=== PATIENT | female | born 1950 | race Hispanic/Latino ===

== ENCOUNTER 2018-03-30 11:38 | Outpatient (CLI) | payer SELFPAY ==
--- NOTE | 2018-03-30 13:01 | RAD ---
LEFT KNEE 2 VIEWS: HISTORY: Chronic knee pain. FINDINGS: There are severe arthritic changes of the knee. There is marked medial compartment narrowing with pr ominent degenerative change of the lateral and patellofemoral compartments. A small joint effusion i s seen. IMPRESSION: Severe osteoarthritis changes of the knee. POS: [facility]
--- NOTE | 2018-03-30 13:01 | RAD ---
RIGHT KNEE 2 VIEWS: Date: 03/30/18 HISTORY: Chronic knee pain. FINDINGS: There are mild arthritic changes of the knee. There is mild to moderate medial compartment narrowing. Minimal patellofemoral and lateral compartment degenerative change. IMPRESSION: Mild to moderate arthritic changes of the right knee. POS: [facility]
== END 2018-03-30 11:39 | disposition home or self-care (01) ==
LOC: MADRAD 11:38
PROVIDERS: ATTEND Family Medicine
DX: M17.0 Bilateral primary osteoarthritis of knee (principal)

== ENCOUNTER 2020-07-22 22:59 | Emergency (ER) | payer SELFPAY ==
[2020-07-22 23:31] LABS: Bilirubin Negative (Negative); Blood, Urine Moderate (Negative); Clarity Clear (Clear); Glucose, Urine (Dipstick) Negative (Negative); Ketone, Urine Negative (Negative); Leukocyte Negative (Negative); Nitrite Negative (Negative); Protein, Urine (Dipstick) Negative (Neg-Trace); Specific Gravity, Urine 1.015 (1.005-1.030); Urobilinogen 0.2 mg/dL (Less than 2)
[2020-07-22 23:36] LABS: Bacteria/HPF Rare-Few HPF (None Seen); Squamous Epithelial 0-3 HPF (0-3); WBC/HPF 0-3 HPF (0-3)
[2020-07-22] MEDS ORDERED: Mag-Al Plus 1200 MG/1200 MG/120 MG/30 ML UDCUP ONE (23:57)
[2020-07-22] MEDS ORDERED: Ondansetron PF 4 MG/2 ML Vial ONE (23:57)
[2020-07-22] MEDS ORDERED: Lidocaine Viscous Sol 2% 15 ml UD Cup ONE (23:57)
[2020-07-22 23:59] LABS: #Eosinphils 0.1 thou/uL (0.0-0.7); #Lymphocytes 1.2 thou/uL (1.20-3.40); #Monocytes 0.7 thou/uL (0.11-0.59); %Basophils 0.7 % (0.0-1.0); %Lymphocytes 24.4 % (21.0-51.0); %Neutrophils 60.9 % (42.0-75.0); Hemoglobin 10.6 g/dL (12.0-16.0); Mean Corpuscular HGB CONC 30.9 g/dL (32.0-36.0); Mean Corpuscular Hemoglobin 26.8 pg (27.0-31.0); Platelet Count 210 thou/uL (130-400); RBC Distribution Width 13.1 % (11.5-14.5); Red Blood Cell (RBC) Count 3.94 mill/uL (4.20-5.40)
--- NOTE | 2020-07-23 00:03 | RAD ---
RADIOGRAPH CHEST 1 VIEW: DATE: 07/22/2020 TIME: 11:54 PM HISTORY: 69-year-old female with chest pain COMPARISON: 12/11/2002 FINDINGS: Mild to moderate infiltrate in right upper lobe was present previously. It appears slightly worse. Th is could be chronic or recurrent acute. Mild streaky densities at right mid and lower lung zones medially, probably representing pulmonary sc arring. Architectural distortion at left perihilar central upper lobe, new or worse than 2003. Nonspecific sc attered small nodular interstitial densities at left lower lung zone, chronic versus acute. No large consolidation, cardiomegaly, or pneumothorax.. IMPRESSION: Multiple bilateral pulmonary densities. At least some are probably chronic, scar. Difficult to determine whether there is any acute infiltrate, because the comparison study is so old.
[2020-07-23 00:20] LABS: ALT (SGPT) 14 U/L (8-55); AST (SGOT) 20 U/L (5-34); Albumin 4.1 g/dL (3.4-4.8); Alkaline Phosphatase 100 U/L (40-110); Anion Gap 16 mmol/L (10-20); BUN (Urea Nitrogen) 31 mg/dL (9.8-20.1); Bilirubin, Total 0.2 mg/dL (0.2-1.2); Calc. Creatinine Clearance 0 mL/min (70-130); Calcium 9.2 mg/dL (7.8-10.44); Carbon Dioxide 25 mmol/L (23-31); Chloride 102 mmol/L (98-107); Estimated GFR-MDRD 57; Globulin 2.8 g/dL (2.4-3.5); Glucose 110 mg/dL (80-115); Lipase 48 U/L (8-78); Potassium 4.8 mmol/L (3.5-5.1); Protein, Total 6.9 g/dL (6.0-8.3); Sodium 138 mmol/L (136-145)
== END 2020-07-23 00:11 | disposition home or self-care (01) ==
LOC: MADERS 22:59
DX: K29.00 Acute gastritis without bleeding (principal); I10 Essential (primary) hypertension; M19.90 Unspecified osteoarthritis, unspecified site; F41.9 Anxiety disorder, unspecified; F32.9 Major depressive disorder, single episode, unspecified
CPT/HCPCS: 71045; 80053; 81003; 81015; 83690; 84484; 85025; 93005; 96374; J2405